=== PATIENT | female | born 1995 | race Hispanic/Latino ===

== ENCOUNTER 2017-03-07 18:07 | Emergency (ER) | payer OTHER ==
[~2017-03-07] VITALS: Ht 152.4 cm; Wt 46.3 kg
[2017-03-07 18:08] VITALS: BP 121/79
[2017-03-07] MEDS ORDERED: YAZ3TAB PO (18:27)
[2017-03-07 21:02] LABS: BASO % 0.7 % (0.0-1.0); EOS # 0.2 K/mm3 (0.0-0.50); EOS % 2.2 % (0.0-3.0); LARGE UNSTAINED CELL # 0.2 K/mm3 (0.0-0.4); LARGE UNSTAINED CELL % 2.1 % (0.0-4.0); LYMPH # 2.9 K/mm3 (1.5-6.5); LYMPH % 37.1 % (24.0-44.0); MEAN CORPUSCULAR HEMOGLOBIN 29.5 pg (27.0-33.0); MEAN CORPUSCULAR HGB CONC 32.5 g/dl (32.0-36.5); MEAN CORPUSCULAR VOLUME 90.9 fl (80.0-96.0); MONO # 0.4 K/mm3 (0.0-0.8); MONO % 4.6 % (0.0-5.0); NEUTROPHILS # 4.2 K/mm3 (1.8-7.7); NEUTROPHILS % 53.3 % (36.0-66.0); PLATELET COUNT, AUTOMATED 316 k/mm3 (150-450); RED CELL DISTRIBUTION WIDTH 12.1 % (11.5-14.5); WHITE BLOOD COUNT 7.9 K/mm3 (4.0-10.0)
[2017-03-07 21:17] LABS: CONTROL LINE UCG INT CTR LINE PRESENT
[2017-03-07 21:30] LABS: CONTROL LINE HCG INT CTR LINE PRESENT
[2017-03-07] MEDS ORDERED: DIFL200T PO (21:42)
[2017-03-07] MEDS ORDERED: FLAG500T PO (21:42)
[2017-03-07] MEDS ORDERED: metroNIDAZOLE (FLAGYL) 500 MG TAB PO ONE (21:45)
[2017-03-07] MEDS ORDERED: FLUCONAZOLE 100 MG TAB PO ONE (21:45)
== END 2017-03-07 22:14 | disposition home or self-care (01) ==
LOC: M ED 19:56
DX: B37.3 Candidiasis of vulva and vagina (principal); N93.9 Abnormal uterine and vaginal bleeding, unspecified; R10.2 Pelvic and perineal pain; N60.02 Solitary cyst of left breast; Z79.3 Long term (current) use of hormonal contraceptives